=== PATIENT | male | born 1950 | race Two or more races ===

== ENCOUNTER 2023-04-20 11:31 | Emergency (ER) | payer MEDICARE, OTHER ==
[~2023-04-20] VITALS: Ht 165.1 cm; Wt 107.2 kg
[2023-04-20] MEDS ORDERED: LIDO5DIS21 TOP (14:20)
[2023-04-20 14:27] VITALS: BP 140/122; PULSE 67; RESP 18; TEMP 98; O2SAT 96
== END 2023-04-20 14:29 | disposition home or self-care (01) ==
LOC: ER 11:31
DX: M54.50 Low back pain, unspecified (principal); G89.29 Other chronic pain; Z79.899 Other long term (current) drug therapy

== ENCOUNTER 2023-04-26 20:44 | Emergency (ER) | payer OTHER ==
[~2023-04-26] VITALS: Ht 165.1 cm; Wt 109.3 kg
[~2023-04-26 20:44] MED LIST: LIDO5DIS21 TOP
[2023-04-26 21:24] VITALS: BP 124/68; PULSE 101
[2023-04-26 23:06] VITALS: TEMP 98.1
[2023-04-26] MEDS ORDERED: ALBUAER3 IN (23:26)
[2023-04-26] MEDS ORDERED: AUG875T PO (23:26)
[2023-04-26] MEDS ORDERED: GUAI100S6 PO (23:26)
[2023-04-26] MEDS ORDERED: PRED10TA PO (23:26)
[2023-04-26] MEDS ORDERED: ALBUTEROL SULF 2.5 MG/0.5ML(0.5%) NEB SOLN NEB ONE (23:30)
[2023-04-26] MEDS ORDERED: DexAMETHasone SOD PHOS 10MG/1ML VIAL INJ IM ONE (23:30)
[2023-04-26] MEDS ORDERED: IPRATROPIUM BROM 0.5 MG/2.5ML INH SOL NEB ONE (23:30)
[2023-04-26] MEDS ORDERED: cefTRIAXone SOD 1,000 MG VL IM ONE (23:30)
[2023-04-26 23:52] VITALS: RESP 20; O2SAT 94
== END 2023-04-27 00:04 | disposition home or self-care (01) ==
LOC: ER 20:44
DX: J18.9 Pneumonia, unspecified organism (principal); I10 Essential (primary) hypertension; Z79.899 Other long term (current) drug therapy
CPT/HCPCS: 71045; 94640; 96372; 99284; J0696; J1100; J7644; 36415

== ENCOUNTER 2023-05-19 09:00 | Emergency (ER) | payer OTHER ==
[~2023-05-19] VITALS: Ht 165.1 cm; Wt 109.6 kg
[~2023-05-19 09:00] MED LIST changes: +ALBUAER3 IN; +AUG875T PO; +GUAI100S6 PO; +PRED10TA PO
[2023-05-19 09:38] LABS: Basophils # (auto) 0 10 ^3/uL (0-0.2); Basophils % (auto) 1.1 % (0.0-2.0); Eosinophils # (auto) 0.1 10 ^3/uL (0-0.8); Eosinophils % (auto) 2.9 % (0.0-7.0); Hematocrit 44.1 % (41.0-53.0); Hemoglobin 14.8 g/dL (13.5-17.5); Lymphocytes # (auto) 1.9 10 ^3/uL (0.4-5.4); Lymphocytes % (auto) 41.6 % (10.0-50.0); Mean Corpuscular Hgb Conc. 33.6 g/dL (32.0-36.0); Mean Corpuscular Volume 89.1 fL (80.0-100.0); Monocytes # (auto) 0.6 10 ^3/uL (0-1.3); Monocytes % (auto) 12.7 % (0.0-12.0); Neutrophils # (auto) 1.9 10 ^3/uL (1.6-8.6); Neutrophils % (auto) 41.7 % (37.0-80.0); Nucleated Red Blood Cells % 0.1 %; Red Blood Cells 4.95 10^6/uL (4.5-5.90); Red Cell Distribution Width 14.8 % (11.8-14.3); White Blood Cell 4.5 10^3/uL (4.4-10.8)
[2023-05-19 09:54] LABS: Chloride 109 mmol/L (98-107); Potassium 4.1 mmol/L (3.5-5.1); Sodium 142 mmol/L (136-145)
[2023-05-19 09:55] LABS: Anion Gap 8 (5-15); Calcium 9.3 mg/dL (8.5-10.1); Carbon Dioxide 25 mmol/L (20-30)
[2023-05-19 10:00] LABS: Alkaline Phosphatase 63 U/L (46-116); BUN/Creatinine Ratio 10.7 (10.0-20.0); Blood Urea Nitrogen 11 mg/dL (9-23); Glucose 102 mg/dL (74-106)
[2023-05-19 10:02] LABS: Albumin 4.4 g/dL (3.2-4.8); Aspartate Aminotransferase 27 U/L (13-40); Bilirubin, Total 0.4 mg/dL (0.2-1.0); Total Protein 7.5 g/dL (5.7-8.2)
[2023-05-19 10:23] LABS: Alanine Aminotransferase 50 U/L (7-40)
[2023-05-19 11:45] LABS: Urine Bacteria NONE SEEN /hpf (None Seen); Urine Blood TRACE /uL (Negative); Urine Clarity Clear (Clear); Urine Color Yellow (Yellow); Urine Protein, UAD Negative (Negative); Urine Specific Gravity 1.019 (1.001-1.035); Urine Urobilinogen Normal (Negative); Urine WBC <1 /hpf (0 - 3); Urine pH 5.5 (5.0-8.0)
[2023-05-19 15:59] VITALS: BP 130/88; PULSE 98; RESP 98; TEMP 97.7; O2SAT 95
== END 2023-05-19 16:11 | disposition home or self-care (01) ==
LOC: ER 09:00
DX: J45.909 Unspecified asthma, uncomplicated (principal); I10 Essential (primary) hypertension
CPT/HCPCS: 36415; 71046; 80053; 81001; 83880; 84484; 85025; 93005